=== PATIENT | male | born 2005 | race Caucasian/White ===

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

== ENCOUNTER 2023-06-09 16:30 | Emergency (ER) | payer MEDICAID, SELFPAY ==
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
[2023-06-09 16:42] VITALS: BP 157/77; PULSE 74; RESP 18; TEMP 36.6; O2SAT 98; BMI 28.7
--- NOTE | 2023-06-09 17:31 | W.ED.EXTPRO ---
HPI - Extremity Problem General: Chief complaint: Extremity Injury, Upper Stated complaint: right elbow pain Time Seen by Provider: 06/09/23 17:28 Source: patient Mode of arrival: ambulatory Limitations: no limitations History of Present Illness: 18-year-old male states he is at work 2 PM and he had a ladder fall onto his right elbow he does have a contusion to his right elbow he states he has had some pain in the elbows improved throughout the day states is mainly pain with range of motion denies any pain at rest denies any other injuries no lacerations. Associated symptoms: Deny chest pain, fever(s) or rash Review of Systems Const: Denies: fever(s), chills, body aches or change in appetite ENMT: Denies: throat pain or dental pain Card: Denies: chest pain Resp: Denies: dyspnea GI: Denies: abdominal pain, nausea, vomiting or diarrhea Musc: Reports: extremity pain; Denies: neck pain or back pain Skin/Breast: Denies: rash Neuro: Denies: headache(s) PFSH ED PFSH: Medical History No pertinent family history Surgical History H/O foot surgery Social History Smoking and tobacco/nicotine status: current every day tobacco/nicotine user Physical Exam Const: COMMON NORMALS: no acute distress and patient oriented x3 HENMT: COMMON NORMALS: normocephalic and atraumatic HEAD & SCALP: normocephalic and atraumatic Neck/C-Spine: COMMON NORMALS: full ROM and supple Chest: COMMONS NORMALS: normal inspection of the chest Resp: COMMON NORMALS: normal respiratory effort Extremity: COMMON NORMALS: full ROM NARRATIVE EXTREMITY EXAM: Contusion noted over elbow does have tenderness over right elbow no obvious deformity has full range of motion. Neuro: COMMON NORMALS: patient oriented x3, moves all extremities and no focal motor deficits Psych: COMMON NORMALS: mental status grossly normal, Normal thought process present and cooperative THOUGHT PROCESS: Normal thought process present Skin: COMMON NORMALS: no rashes or lesions noted and no wounds GENERAL SKIN EXAM: no rashes or lesions noted Course Vital Signs: Vital signs: Vital Signs Temperature 97.9 F 06/09/23 16:42 Pulse Rate 74 06/09/23 16:42 Respiratory Rate 18 06/09/23 16:42 Blood Pressure 157/77 06/09/23 16:42 Pulse Oximetry 98 06/09/23 16:42 Oxygen Delivery Me thod Room Air 06/09/23 16:42 MDM - Extremity (Nontraumatic) Medical Decision Making Patient presents here with an elbow contusion x-ray here shows no fracture patient is stable for discharge he is follow-up PCP and return if worsening. Medical Records I reviewed the patient's medical records. Lab Data Radiology Impressions Elbow X-Ray 06/09/23 16:34 IMPRESSION: No acute findings. All radiology interpretation(s) finalized by discharge Discharge Plan Discharge Patient Disposition: Home Clinical Impression: Contusion of elbow, right Condition: Stable Prescriptions: New Naprosyn 500 mg tablet 500 mg PO BID PRN (Reason: pain) Qty: 20 0RF No Action amoxicillin 875 mg tablet 875 mg PO BID 7 Days Qty: 14 0RF Naprosyn 500 mg tablet 500 mg PO BID PRN (Reason: pain) Qty: 20 0RF (DME) Cock up splint- RT Wrist See Rx Instructions .Route .MEDSUPPLY Qty: 1 0RF Rx Instructions: As directed dexamethasone 4 mg tablet 4 mg PO DAILY Qty: 5 0RF Lidocaine Viscous 2 % solution 15 ml MUCOUS MEM QID Qty: 100 0RF Rx Instructions: Mix with water and gargle for 60 seconds, then spit acetaminophen-codeine 300-30 mg tablet 1 tab PO Q6H PRN (Reason: pain) Qty: 14 0RF ibuprofen 800 mg tablet 800 mg PO Q8H PRN (Reason: pain) Qty: 20 0RF cyclobenzaprine 10 mg tablet 10 mg PO BID PRN (Reason: muscle spasm) Qty: 20 0RF Discharge Orders: Discharge ED (Routine); Ordered 06/09/23 Ordered By: Zakia Damon Discharge Diet: Advance as tolerated Discharge Activity: Resume usual activity Patient Instructions: Contusion in Adults (ED) Coding Level of Care Code ED Housecalls Nurse for Kaylin Hastings
== END 2023-06-09 17:35 | disposition home or self-care (01) ==
PROVIDERS: Emergency Provider Emergency Medicine
DX: S50.01XA Contusion of right elbow, initial encounter (principal); Z72.0 Tobacco use; W20.8XXA Other cause of strike by thrown, projected or falling object, initial encounter
CPT/HCPCS: 73080; 99283

== ENCOUNTER 2023-07-20 14:26 | Emergency (ER) | payer MEDICAID, SELFPAY ==
[2023-07-20 14:31] VITALS: BP 131/85; PULSE 89; RESP 16; TEMP 36.4; O2SAT 99; BMI 29.3
--- NOTE | 2023-07-20 14:47 | ED.C_ITS ---
HPI - Psych General: Chief Complaint: Psychiatric Symptoms Stated Complaint: MHE Time Seen by Provider: 07/20/23 14:31 Source: patient Mode of arrival: ambulatory Limitations: no limitations History of Present Illness: 18-year-old male states that he has been under some stress he is recently over 2-year relationship send history of ADHD. States has had some depression. He denies any suicidal or homicidal ideation states he feels like his mind is racing he states that he tried to see his provider at [facility] and they were closed he states he came over here because he just needed someone to talk to. Associated symptoms: Reports depression Review of Systems Const: Denies: fever(s), chills, body aches or change in appetite ENMT: Denies: throat pain or dental pain Card: Denies: chest pain Resp: Denies: dyspnea GI: Denies: abdominal pain, nausea, vomiting or diarrhea Musc: Denies: neck pain or back pain Skin/Breast: Denies: rash Neuro: Denies: headache(s) Psych: Reports: depression PFS ED PFSH: Medical History No pertinent family history Surgical History H/O foot surgery Social History Smoking and tobacco/nicotine status: current every day tobacco/nicotine user Physical Exam Const: COMMON NORMALS: no acute distress, patient oriented x3 and healthy appearing HENMT: COMMON NORMALS: normocephalic and atraumatic HEAD & SCALP: normocephalic and atraumatic Eye: COMMON NORMALS: Equal, round and reactive pupils present and EOMs intact bilaterally PUPIL: Yes Equal, round and reactive pupils present Neck/C-Spine: COMMON NORMALS: full ROM and supple Chest: COMMONS NORMALS: normal inspection of the chest Resp: COMMON NORMALS: normal respiratory effort Cardio: COMMON NORMALS: regular rate and regular rhythm RATE: regular rate RHYTHM: regular rhythm Extremity: COMMON NORMALS: normal to inspection and full ROM Neuro: COMMON NORMALS: patient oriented x3, moves all extremities and no focal motor deficits Psych: COMMON NORMALS: mental status grossly normal, Normal thought process present and cooperative THOUGHT PROCESS: Normal thought process present Skin: COMMON NORMALS: no rashes or lesions noted and no wounds GENERAL SKIN EXAM: no rashes or lesions noted Course Vital Signs: Vital signs: Vital Signs Temperature 97.5 F L 07/20/23 14:31 Pulse Rate 89 07/20/23 14:31 Respiratory Rate 16 07/20/23 14:31 Blood Pressure 131/85 07/20/23 14:31 Pulse Oximetry 99 07/20/23 14:31 Oxygen Delivery Me thod Room Air 07/20/23 14:31 MDM - Psych Medical Decision Making Patient presents here with depression he is also concerned about his ADHD he informs me he just really needed someone to talk to. He adamantly denies being SI or HI he is not acutely psychotic here I did offer him admission he states he does not feel like he needs to be admitted he states that he was just looking for someone to talk to I do not believe he is a threat to himself or others I did give him information on the crisis center did call the crisis center and they are open discharged him and informed him he should go to the crisis center as they are set up for this. Medical Records I reviewed the patient's medical records. No radiology studies performed this visit Discharge Plan Discharge Patient Disposition: Home Clinical Impression: Depression Condition: Stable Prescriptions: No Action amoxicillin 875 mg tablet 875 mg PO BID 7 Days Qty: 14 0RF Naprosyn 500 mg tablet 500 mg PO BID PRN (Reason: pain) Qty: 20 0RF (DME) Cock up splint- RT Wrist See Rx Instructions .Route .MEDSUPPLY Qty: 1 0RF Rx Instructions: As directed dexamethasone 4 mg tablet 4 mg PO DAILY Qty: 5 0RF Lidocaine Viscous 2 % solution 15 ml MUCOUS MEM QID Qty: 100 0RF Rx Instructions: Mix with water and gargle for 60 seconds, then spit Naprosyn 500 mg tablet 500 mg PO BID PRN (Reason: pain) Qty: 20 0RF acetaminophen-codeine 300-30 mg tablet 1 tab PO Q6H PRN (Reason: pain) Qty: 14 0RF ibuprofen 800 mg tablet 800 mg PO Q8H PRN (Reason: pain) Qty: 20 0RF cyclobenzaprine 10 mg tablet 10 mg PO BID PRN (Reason: muscle spasm) Qty: 20 0RF Discharge Orders: Discharge ED (Routine); Ordered 07/20/23 Ordered By: Zakia Damon Discharge Diet: Advance as tolerated Discharge Activity: Resume usual activity Patient Instructions: Depression (ED) Coding Level of Care Code ED Saw Setter for Kaylin Hastings
== END 2023-07-20 15:00 | disposition home or self-care (01) ==
PROVIDERS: Emergency Provider Emergency Medicine
DX: F32.A Depression, unspecified (principal); Z72.0 Tobacco use
CPT/HCPCS: 99283

== ENCOUNTER 2023-09-03 17:05 | Emergency (ER) | payer MEDICAID, SELFPAY ==
[2023-09-03 17:32] VITALS: BP 166/99; PULSE 86; RESP 16; TEMP 36.8; O2SAT 99
--- NOTE | 2023-09-03 18:02 | XRR_ITS ---
PROCEDURE INFORMATION: Exam: XR Left Ribs with PA Chest Exam date and time: 09/03/2023 6:33 PM Age: 18 years old Clinical indication: Injury or trauma; Fall; Work related; Chest wall; Sprain or strain TECHNIQUE: Imaging protocol: Radiologic exam of the left ribs with PA chest. Views: 3 views COMPARISON: CR XR chest 1V portable [id number] 08/03/2019 9:20 AM FINDINGS: Lungs: There are scattered nodules in the right lung, stable since 08/03/2019 suggesting healed granulomas. There is no consolidation. Pleural spaces: There is no pleural effusion or pneumothorax. Heart/Mediastinum: Cardiomediastinal contours are unremarkable. Bones/joints: Bones are unremarkable. No visible rib fracture. XR/XR ribs LT mn 3V w CXR1V [id number] IMPRESSION: No acute findings.
--- NOTE | 2023-09-03 18:02 | XRR_ITS ---
PROCEDURE INFORMATION: Exam: XR Right Ankle Exam date and time: 09/03/2023 6:33 PM Age: 18 years old Clinical indication: Injury or trauma; Fall; Work related; Sprain or strain; Ankle; Right TECHNIQUE: Imaging protocol: Radiologic exam of the right ankle. Views: 3 or more views. COMPARISON: CR XR ankle RT min 3V* [id number] 10/18/2022 4:16 PM FINDINGS: Bones/joints: Normal. Soft tissues: Normal. XR/XR ankle RT min 3V* [id number] IMPRESSION: No acute findings.
--- NOTE | 2023-09-03 20:08 | W.ED.FALL ---
HPI - Fall General: Chief Complaint: Fall Stated Complaint: Abd pains, Right ankle pain Time Seen by Provider: 09/03/23 19:55 History of Present Illness: Patient presents to the ER with complaints of left lateral rib pain and right ankle pain. Patient was at work today when he fell off a ladder and the ladder came down and hit him on his left ribs. Patient thinks he rolled his right ankle. He was able to work through us today. In he ambulates without difficulty. He does hurt his left lateral chest wall to take big deep breaths but the pain is minimal. Review of Systems General: Reports: 10 or more systems reviewed and unremarkable except in HPI and below PFSH ED PFSH: Medical History Psychiatric care Alcohol use disorder, mild, abuse Vaping nicotine dependence, tobacco product No pertinent family history Surgical History H/O foot surgery Social History Smoking and tobacco/nicotine status: current every day tobacco/nicotine user Physical Exam Const: COMMON NORMALS: no acute distress, average body habitus, patient oriented x3, no limitations, healthy appearing, alert and well nourished Neck/C-Spine: COMMON NORMALS: no JVD Chest: COMMONS NORMALS: normal inspection of the chest; negative for normal palpation of entire chest wall (Minimal tenderness with palpation of left lateral chest wall lower rib area) Resp: COMMON NORMALS: normal respiratory effort, No retractions, No use of accessory muscles and clear to auscultation bilaterally AUSCULTATION: clear to auscultation bilaterally Cardio: COMMON NORMALS: no JVD, regular rate, regular rhythm, S1 normal heart sound present, S2 normal heart sound present, No gallops present (Cardio), No clicks present (Cardio), No murmurs present (Cardio) and No rub (Cardio) RATE: regular rate RHYTHM: regular rhythm HEART SOUNDS: S1 normal heart sound present and S2 normal heart sound present GI: COMMON NORMALS: Normal to inspection, nondistended, normoactive bowel sounds present, Soft to palpation, non-tender, No hepatosplenomegaly present and no masses PALPATION: Yes Soft to palpation and Yes No hepatosplenomegaly present Extremity: NARRATIVE EXTREMITY EXAM: Good range of motion right ankle no obvious swelling tenderness. Neuro: COMMON NORMALS: patient oriented x3 SENSORIUM/ORIENTATION: Yes alert Course Vital Signs: Vital signs: Vital Signs Temperature 98.3 F 09/03/23 17:32 Pulse Rate 86 09/03/23 17:32 Respiratory Rate 16 09/03/23 17:32 Blood Pressure 166/99 09/03/23 17:32 Pulse Oximetry 99 09/03/23 17:32 Oxygen Delivery Me thod Room Air 09/03/23 17:32 MDM - Fall Medical Decision Making Patient had right ankle and ribs on the left side x-rayed both which were read off as no acute findings per the radiologist. These results was described in detail to the patient. Patient understands. Patient be discharged home. Differential Diagnosis Unlikely syncope, dislocation of shoulder region, fracture of wrist, compression fracture, concussion with loss of consciousness or concussion without loss of consciousness Medical Records I reviewed the patient's medical records. Lab Data I reviewed the patient's lab results. Radiology Impressions Ankle X-Ray 09/03/23 18:02 IMPRESSION: No acute findings. Ribs X-Ray 09/03/23 18:02 IMPRESSION: No acute findings. All radiology interpretation(s) finalized by discharge Discharge Plan Discharge Patient Disposition: Home Clinical Impression: Acute right ankle pain, Rib pain on left side Fall Qualifiers: Encounter type: initial encounter Qualified Code(s): W19.XXXA - Unspecified fall, initial encounter Condition: Stable Prescriptions: No Action amoxicillin 875 mg tablet 875 mg PO BID 7 Days Qty: 14 0RF Naprosyn 500 mg tablet 500 mg PO BID PRN (Reason: pain) Qty: 20 0RF (DME) Cock up splint- RT Wrist See Rx Instructions .Route .MEDSUPPLY Qty: 1 0RF Rx Instructions: As directed dexamethasone 4 mg tablet 4 mg PO DAILY Qty: 5 0RF Lidocaine Viscous 2 % solution 15 ml MUCOUS MEM QID Qty: 100 0RF Rx Instructions: Mix with water and gargle for 60 seconds, then spit Naprosyn 500 mg tablet 500 mg PO BID PRN (Reason: pain) Qty: 20 0RF Prozac 10 mg capsule 10 mg PO DAILY Qty: 1 0RF Concerta 18 mg tablet extended release 24hr 18 mg PO QAM 30 Days Qty: 30 0RF acetaminophen-codeine 300-30 mg tablet 1 tab PO Q6H PRN (Reason: pain) Qty: 14 0RF ibuprofen 800 mg tablet 800 mg PO Q8H PRN (Reason: pain) Qty: 20 0RF cyclobenzaprine 10 mg tablet 10 mg PO BID PRN (Reason: muscle spasm) Qty: 20 0RF Discharge Orders: Discharge ED (Routine); Ordered 09/03/23 Ordered By: Andre Mooney Patient Instructions: Contusion in Adults (ED) Activity Restrictions/Additional Instructions: Your x-rays of your right ankle and your left ribs was read by the radiologist as no acute fracture. These areas are probably just contused. Please take continue to take [id number] Tylenol and/or ibuprofen for pain. Please follow-up with your family practice doctor within the next 7 days if needed. Coding Level of Care Code ED Thiokol Operator for Kaylin Hastings
== END 2023-09-03 20:36 | disposition home or self-care (01) ==
PROVIDERS: Emergency Provider Emergency Medicine
DX: R07.81 Pleurodynia (principal); M25.571 Pain in right ankle and joints of right foot; Z72.0 Tobacco use; W11.XXXA Fall on and from ladder, initial encounter
CPT/HCPCS: 71101; 73610; 99284

== ENCOUNTER 2023-09-18 10:45 | Emergency (ER) | payer MEDICAID, SELFPAY ==
--- NOTE | 2023-09-18 10:54 | XRR_ITS ---
PROCEDURE INFORMATION: Exam: XR Chest Exam date and time: 09/18/2023 11:50 AM Age: 18 years old Clinical indication: Fever TECHNIQUE: Imaging protocol: Radiologic exam of the chest. Views: 1 view. COMPARISON: CR (CHEST, ) 09/03/2023 6:33 PM FINDINGS: Lungs: Unremarkable. No consolidation. Pleural spaces: Unremarkable. No pleural effusion. No pneumothorax. Heart/Mediastinum: Unremarkable. No cardiomegaly. Bones/joints: Unremarkable. XR/XR chest 1V portable [id number] IMPRESSION: No acute findings.
[2023-09-18 10:59] VITALS: BP 134/92; PULSE 78; RESP 14; TEMP 36.4; O2SAT 98
[2023-09-18 11:03] VITALS: BP 144/73; O2SAT 95
[2023-09-18 11:29] LABS: Influenza A by IFA negative (Negative); Influenza B by IFA negative (Negative); SARS Covid-2 Antigen negative (Negative)
--- NOTE | 2023-09-18 11:32 | W.ED.URI ---
HPI - URI/Sore Throat General: Chief Complaint: Upper Respiratory Infection Stated Complaint: Couch, fever Time Seen by Provider: 09/18/23 10:58 Source: patient Mode of arrival: ambulatory Limitations: no limitations History of Present Illness: 18-year-old male states over the last days had cough congestion along with subjective fevers and bodyaches. He denies any shortness of breath denies any vomiting or diarrhea he is in no distress here. Had mild headaches as well. Associated symptoms: Deny abdominal pain, chills, chest pain, diarrhea, fever(s), headache(s), nausea or vomiting Review of Systems Const: Reports: body aches; Denies: fever(s), chills or change in appetite ENMT: Denies: throat pain or dental pain Card: Denies: chest pain Resp: Reports: non-productive cough; Denies: dyspnea GI: Denies: abdominal pain, nausea, vomiting or diarrhea : Denies: dysuria Musc: Denies: neck pain or back pain Skin/Breast: Denies: rash Neuro: Denies: headache(s) PFSH ED PFSH: Medical History Psychiatric care Alcohol use disorder, mild, abuse Vaping nicotine dependence, tobacco product No pertinent family history Surgical History H/O foot surgery Social History Smoking and tobacco/nicotine status: current every day tobacco/nicotine user Physical Exam Const: COMMON NORMALS: no acute distress, patient oriented x3 and healthy appearing HENMT: COMMON NORMALS: normocephalic and atraumatic HEAD & SCALP: normocephalic and atraumatic THROAT: posterior oropharynx normal Neck/C-Spine: COMMON NORMALS: full ROM and supple Chest: COMMONS NORMALS: normal inspection of the chest Resp: COMMON NORMALS: normal respiratory effort, No retractions, No use of accessory muscles and clear to auscultation bilaterally AUSCULTATION: clear to auscultation bilaterally Cardio: COMMON NORMALS: regular rate, regular rhythm and No murmurs present (Cardio) RATE: regular rate RHYTHM: regular rhythm Extremity: COMMON NORMALS: normal to inspection and full ROM Neuro: COMMON NORMALS: patient oriented x3, moves all extremities and no focal motor deficits Psych: COMMON NORMALS: mental status grossly normal, Normal thought process present and cooperative THOUGHT PROCESS: Normal thought process present Skin: COMMON NORMALS: no rashes or lesions noted and no wounds GENERAL SKIN EXAM: no rashes or lesions noted Course Vital Signs: Vital signs: Vital Signs Temperature 97.5 F L 09/18/23 10:59 Pulse Rate 78 09/18/23 10:59 Respiratory Rate 14 09/18/23 10:59 Blood Pressure 144/73 09/18/23 11:03 Pulse Oximetry 95 09/18/23 11:03 Oxygen Delivery Me thod Room Air 09/18/23 10:59 MDM - URI/Sore Throat Medical Decision Making Patient presents here with upper respiratory infection flu and COVID are negative patient is well-appearing here he stable for discharge he is to follow-up with PCP return if worsening. Medical Records I reviewed the patient's medical records. Lab Data I reviewed the patient's lab results. Laboratory Results Influenza Type A Ag negative (Negative) 09/18/23 11:06 Influenza Type B Ag negative (Negative) 09/18/23 11:06 SARS-CoV-2 Ag (Rapid) negative (Negative) 09/18/23 11:06 XR interpretation done by ED provider, pending radiology final review ED provider radiology interpretation(s): cxr: no acute abnormalities Discharge Plan Discharge Patient Disposition: Home Clinical Impression: Upper respiratory infection Condition: Stable Prescriptions: No Action No Known Home Medications Discharge Orders: Discharge ED (Routine); Ordered 09/18/23 Ordered By: Zakia Damon Discharge Diet: Advance as tolerated Discharge Activity: Resume usual activity Patient Instructions: Upper Respiratory Infection (ED) Coding Level of Care Code ED Banking Supervisor for Kaylin Hastings
[2023-09-18] MEDS: dexamethasone 10 mg/mL INJ IM (11:39)
[2023-09-18 12:25] VITALS: BP 144/73; O2SAT 95
== END 2023-09-18 12:26 | disposition home or self-care (01) ==
PROVIDERS: Emergency Provider Emergency Medicine
DX: J06.9 Acute upper respiratory infection, unspecified (principal); Z11.52 Encounter for screening for COVID-19; Z72.0 Tobacco use
CPT/HCPCS: 71045; 87426; 87804; 96372; 99284; J1100

== ENCOUNTER → 2023-09-22 13:45 | Outpatient (BNVA) | payer MEDICAID, SELFPAY | PROVIDERS: Visit Provider Nurse Practitioner | DX: F12.10 Cannabis abuse, uncomplicated (principal); F91.3 Oppositional defiant disorder; F90.9 Attention-deficit hyperactivity disorder, unspecified type; F19.929 Other psychoactive substance use, unspecified with intoxication, unspecified | CPT/HCPCS: 80306 ==

== ENCOUNTER 2023-12-18 17:25 | Emergency (ER) | payer MEDICAID, SELFPAY ==
[2023-12-18 17:29] VITALS: BP 142/75; PULSE 70; RESP 14; TEMP 36.3; O2SAT 98
--- NOTE | 2023-12-18 19:20 | W.ED.RECABL ---
Documented by User: EULALIO Boo 12/18/23 19:51 HPI - Recheck/Abnormal Lab/Rx General: Chief Complaint: Recheck/Abnormal Lab/Rx Stated Complaint: need med refill Time Seen by Provider: 12/18/23 19:19 Source: patient Mode of arrival: ambulatory Limitations: no limitations History of Present Illness: Patient is a 18-year-old male who presents to the ED today requesting a prescription of his Adderall. Patient states he saw his [facility] provider today Madina Schmitt. Patient states he has been on the Adderall approximately 3 months for ADHD. 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 Patient states that Madina had to approve medication through her supervising physician and that because it was Thursday at 4:00 this failed to go through in time. Patient attempted multiple outlets through [facility] as well as [facility] to get his prescription all without success. MD complaint: medication refill request Initial visit (ago): hour(s) (saw [facility] earlier today) Returns today for: request for prescription Symptoms since prior visit: no new symptoms Associated symptoms: none Review of Systems General: Reports: 10 or more systems reviewed and unremarkable except in HPI and below PFS ED PFSH: Medical History Cannabis abuse Psychiatric care Alcohol use disorder, mild, abuse Vaping nicotine dependence, tobacco product No pertinent family history Surgical History H/O foot surgery Social History Smoking and tobacco/nicotine status: current every day tobacco/nicotine user Physical Exam Const: COMMON NORMALS: no acute distress, average body habitus, patient oriented x3, no limitations, healthy appearing, alert and well nourished Resp: COMMON NORMALS: normal respiratory effort and clear to auscultation bilaterally AUSCULTATION: clear to auscultation bilaterally Cardio: COMMON NORMALS: regular rate and regular rhythm RATE: regular rate RHYTHM: regular rhythm Neuro: GAYATHRI COMA SCALE: document GCS findings Gayathri coma scale eye opening: Spontaneous [place] coma scale verbal response: Orientated [place] coma scale motor response: Obey commands Gayathri coma scale total score: 15 COMMON NORMALS: patient oriented x3 SENSORIUM/ORIENTATION: Yes alert Psych: COMMON NORMALS: mental status grossly normal, Normal thought process present, cooperative, normal affect, speech normal, activity/motor behavior normal, denies hallucinations, denies homicidal ideation and denies suicidal ideation APPEARANCE: Yes grossly normal ATTITUDE: Yes calm SPEECH: Yes normal speech THOUGHT PROCESS: Normal thought process present Course Vital Signs: Vital signs: Vital Signs Temperature 97.6 F 12/18/23 20:25 Pulse Rate 68 12/18/23 20:25 Respiratory Rate 16 12/18/23 20:25 Blood Pressure 138/76 12/18/23 20:25 Pulse Oximetry 99 12/18/23 20:25 Oxygen Delivery Me thod Room Air 12/18/23 17:29 MDM - Recheck/Abnormal Lab/Rx Medical Decision Making Dr. Clancy was agreeable to fill prescription for patient. This will be one month worth of medication which should give him plenty of time to contact [facility] for any additional medication he may need while out on work. Differential Diagnosis Likely encounter for medication refill Medical Records I reviewed the patient's medical records. No radiology studies performed this visit Discharge Plan Discharge Patient Disposition: Home Clinical Impression: Encounter for medication refill Condition: Stable Prescriptions: Continued Adderall 10 mg tablet 10 mg PO BID 30 Days Qty: 60 0RF Rx Instructions: administer doses at least 4-6 hours apart Discharge Orders: Discharge ED (Routine); Ordered 12/18/23 Ordered By: Essie Coronel Coding Level of Care Code ED Fresh Foods Technician for Chg Fwd Documented by User: Manuel Clancy, 12/18/23 23:02 HPI - Recheck/Abnormal Lab/Rx General: Chief Complaint: Recheck/Abnormal Lab/Rx Stated Complaint: need med refill Time Seen by Provider: 12/18/23 19:19 PFS ED PFSH: Medical History Cannabis abuse Psychiatric care Alcohol use disorder, mild, abuse Vaping nicotine dependence, tobacco product No pertinent family history Surgical History H/O foot surgery Social History Smoking and tobacco/nicotine status: current every day tobacco/nicotine user Physical Exam Neuro: GAYATHRI COMA SCALE: document GCS findings [place] coma scale total score: 15 Course Vital Signs: Vital signs: Vital Signs Temperature 97.6 F 12/18/23 20:25 Pulse Rate 68 12/18/23 20:25 Respiratory Rate 16 12/18/23 20:25 Blood Pressure 138/76 12/18/23 20:25 Pulse Oximetry 99 12/18/23 20:25 Oxygen Delivery Me thod Room Air 12/18/23 17:29 MDM - Recheck/Abnormal Lab/Rx Medical Decision Making Dr. Clancy was agreeable to fill prescription for patient. This will be one month worth of medication which should give him plenty of time to contact [facility] for any additional medication he may need while out on work. This patient was originally seen by Mrs. Coronel?LUIS E Albright? I agree with her history, evaluation, and treatment. Discharge Plan Discharge Patient Disposition: Home Clinical Impression: Encounter for medication refill Condition: Stable Prescriptions: Continued Adderall 10 mg tablet 10 mg PO BID 30 Days Qty: 60 0RF Rx Instructions: administer doses at least 4-6 hours apart Discharge Orders: Discharge ED (Routine); Ordered 12/18/23 Ordered By: Essie Coronel Coding Level of Care Code ED Fresh Foods Technician for Kaylin Hastings
[2023-12-18 20:25] VITALS: BP 138/76; PULSE 68; RESP 16; TEMP 36.4; O2SAT 99
== END 2023-12-18 19:58 | disposition home or self-care (01) ==
PROVIDERS: Emergency Provider Physician Assistant
DX: Z76.0 Encounter for issue of repeat prescription (principal); Z72.0 Tobacco use
CPT/HCPCS: 99281

== ENCOUNTER 2024-01-25 18:58 | Emergency (ER) | payer MEDICAID, SELFPAY ==
--- NOTE | 2024-01-25 19:02 | XRR_ITS ---
PROCEDURE INFORMATION: Exam: XR Right Shoulder Exam date and time: 01/25/2024 7:34 PM Age: 18 years old Clinical indication: Pain; Right; Prior surgery; Surgery date: 6+ months; Surgery type: RT shoulder; Additional info: Injury TECHNIQUE: Imaging protocol: Radiologic exam of the right shoulder. Views: 2 or more views. COMPARISON: CR XR chest 1V portable [id number] 09/18/2023 11:50 AM FINDINGS: Bones/joints: No acute fracture. No dislocation. Normal bone mineralization. No joint effusion. Joint spaces are maintained. Lungs: The visualized right lung is clear. Soft tissues: No soft tissue swelling. No radiopaque foreign body. XR/XR shoulder RT min 2V* [id number] IMPRESSION: Negative radiographs of the right shoulder. Followup imaging recommended in 7-14 days if clinical concern for fracture persists.
[2024-01-25 19:05] VITALS: BP 127/78; PULSE 76; RESP 16; TEMP 36.8; O2SAT 98; BMI 28.0
--- NOTE | 2024-01-25 20:56 | ED_ITS ---
HPI - Extremity Problem General: Chief complaint: Extremity Injury, Upper Stated complaint: Right shoulder pain Time Seen by Provider: 01/25/24 20:44 Source: patient Mode of arrival: ambulatory Limitations: no limitations History of Present Illness: Patient is a 18-year-old male presenting to the emergency department complaining of chronic right shoulder pain acutely worsening 4 days ago. Patient states he has a history of right shoulder fracture, this was surgically repaired. He states that he has had chronic pain since, and 4 days ago he injured it at work and a hyperextension injury. He states that at that time it causes shoulder dislocate, however with the help of a coworker he was able to pop it back in place. Pain to the right shoulder has only steadily worsened since and states that last night he was up all night due to the pain. He has not been taking anything for the pain. He states that he does not have primary care at this time, as he works on the [employer] and is gone for 30 days at a time. He is set to leave this Thursday and wonders if he can see a specialist before then. He notes that he did do a trial of physical therapy but that this did not help very much. No distal radiation of the pain, no numbness/weakness/tingling, and no other symptoms to report at this time. MD Complaint: joint pain Location: right and upper extremity Radiation: none Relieving factors: nothing Exacerbating factors: range of motion Associated symptoms: Deny chest pain, fever(s) or rash Review of Systems General: Reports: 10 or more systems reviewed and unremarkable except in HPI and below Const: Denies: fever(s) or chills Card: Denies: chest pain Resp: Denies: dyspnea or productive cough GI: Denies: abdominal pain, nausea, vomiting or diarrhea : Denies: flank pain Musc: Reports: joint pain (right shoulder); Denies: neck pain, back pain, extremity pain, extremity swelling, joint swelling, joint redness, joint warmth, limited range of motion or muscle weakness Skin/Breast: Denies: rash Neuro: Denies: headache(s), numbness in extremities or weakness in extremities PFS ED PFSH: Medical History Cannabis abuse Psychiatric care Alcohol use disorder, mild, abuse Vaping nicotine dependence, tobacco product No pertinent family history Surgical History H/O foot surgery Social History Smoking and tobacco/nicotine status: current every day tobacco/nicotine user Physical Exam Const: COMMON NORMALS: no acute distress, patient oriented x3, no limitations, healthy appearing, alert and well nourished HENMT: COMMON NORMALS: normocephalic and atraumatic HEAD & SCALP: normocephalic and atraumatic Neck/C-Spine: COMMON NORMALS: full ROM, supple and no meningeal signs Resp: COMMON NORMALS: normal respiratory effort, No use of accessory muscles and clear to auscultation bilaterally AUSCULTATION: clear to auscultation bilaterally Cardio: COMMON NORMALS: regular rate and regular rhythm RATE: regular rate RHYTHM: regular rhythm Extremity: COMMON NORMALS: normal to inspection, capillary refill normal, no joint enlargement and no clubbing, cyanosis or edema NARRATIVE EXTREMITY EXAM: Pain with range of motion, specifically abduction and adduction of the right shoulder. Postop arthroscopic scars. No significant reproducible tenderness to palpation. No bruising or obvious signs of deformity or dislocation. Neuro: COMMON NORMALS: patient oriented x3, moves all extremities, no focal motor deficits and no sensory deficits noted SENSORIUM/ORIENTATION: Yes alert MENINGEAL SIGNS: Yes no meningeal signs Skin: COMMON NORMALS: no rashes or lesions noted GENERAL SKIN EXAM: no rashes or lesions noted Course Vital Signs: Vital signs: Vital Signs Temperature 98.3 F 01/25/24 19:05 Pulse Rate 76 01/25/24 19:05 Respiratory Rate 16 01/25/24 19:05 Blood Pressure 127/78 01/25/24 19:05 Pulse Oximetry 98 01/25/24 19:05 Oxygen Delivery Me thod Room Air 01/25/24 19:05 MDM - Extremity (Nontraumatic) Medical Decision Making Patient seen for chronic right shoulder pain that was exacerbated at work 4 days ago, stating it was dislocated and then popped back in place by coworker. History of shoulder surgery on that right shoulder. Pain has been steadily worsened since the incident. Vitals normal on arrival. Physical examination did reveal pain with range of motion of that right shoulder, however there is no significant reproducible tenderness to palpation and no obvious signs of dislocation or deformity. Further, x-ray did not demonstrate any acute findings. I informed him that we probably need to get him into see orthopedics for an MRI, as I do believe his pain to be of tendinous or ligamentous origin at this time. Other etiologies include potential complex regional pain syndrome or other postoperative pains. He is given shot of steroid, muscle relaxer, and Toradol here in the emergency department and prescription sent to pharmacy for him to treat his acute pain. Referred to orthopedics, and strict return precautions are given. Lab Data Radiology Impressions Shoulder X-Ray 01/25/24 19:02 IMPRESSION: Negative radiographs of the right shoulder. Followup imaging recommended in 7-14 days if clinical concern for fracture persists. All radiology interpretation(s) finalized by discharge Discharge Plan Discharge Patient Disposition: Home Clinical Impression: Pain in right shoulder Condition: Stable Prescriptions: New prednisone 20 mg tablet 60 mg PO ONCE 5 Days Qty: 15 0RF ketorolac 10 mg tablet 10 mg PO Q8H PRN (Reason: pain) Qty: 15 0RF methocarbamol 750 mg tablet 750 mg PO Q8H 5 Days Qty: 15 0RF No Action Adderall 10 mg tablet 10 mg PO BID 30 Days Qty: 60 0RF Rx Instructions: administer doses at least 4-6 hours apart Discharge Orders: Discharge ED (Routine); Ordered 01/25/24 Ordered By: Felipe Shook Discharge Diet: Usual diet Discharge Activity: Increase activity as tolerated Patient Instructions: Shoulder Pain (ED), Pain Management Activity Restrictions/Additional Instructions: Follow-up with orthopedics for further evaluation, including potentially MRI. Take medications as prescribed. Gentle range of motion exercises as tolerated. Please return with any new or worsening symptoms. Coding Level of Care Code ED Visual Training Aide for Kaylin Hastings
[2024-01-25] MEDS: cyclobenzaprine 10 mg Tablet PO (21:24)
[2024-01-25] MEDS: dexamethasone 10 mg/mL INJ IM (21:25)
[2024-01-25] MEDS: ketorolac 60 mg/2 mL INJ IM (21:28)
--- NOTE | 2024-01-27 08:12 | DCPLANNER ---
messaged ortho for er f/u
== END 2024-01-25 21:34 | disposition home or self-care (01) ==
PROVIDERS: Emergency Provider Physician Assistant
DX: M25.511 Pain in right shoulder (principal); G89.29 Other chronic pain
CPT/HCPCS: 73030; 96372; 99284; J1100; J1885

== ENCOUNTER 2024-02-17 20:28 | Emergency (ER) | payer MEDICAID, SELFPAY ==
--- NOTE | 2024-02-17 20:36 | ED_ITS ---
HPI - Chest Pain 2 General: Chief Complaint: General Medical Stated Complaint: CP sob Time Seen by Provider: 02/17/24 20:34 Source: patient Mode of arrival: ambulatory Limitations: no limitations History of Present Illness: Patient is a 18-year-old male who presents to ED today with a complaint of episodic left-sided chest pain over the past 2 months. He states over this time. He has had approximately 6 episodes. He states episodes always seem to be when he lies down trying to sleep at night. He states that soon as he attempts to drift off to sleep he will awaken with shock like sensations to the left side of his chest. States it feels like electric currents are running through his heart. Patient states he has an incredible sense of impending doom when these happen. Feels like heart is racing although has never checked his pulse He states he does not feel anxious before symptoms occur. He states he usually feels good during the day when he is up and moving . During episode this evening he applied ice to his chest and thinks maybe this helped He has not noticed any shortness of breath or difficulty breathing. Patient upon arrival seems slightly drowsy. He states he has not slept well in days. Patient does not have any leg pain/calf pain or leg swelling. He states he has no known medical issues. He does have a history of psychiatric care as well as substance abuse. States he used to take Adderall for ADHD but has not taken this medication in several weeks. Denies drug/etoh use but does admit to these in the past. Does admit to taking a hydrocodone prior to arrival to see if this would help his pain. At time of examination, he is no longer having chest pain. MD complaint: chest pain Onset (ago): month(s) Timing of current episode: episodic Prior episodes: Yes Onset: during rest (lying down in bed attempting sleep) Pain location: left chest Pain radiation: none Severity: severe Quality: other ( shock like ) Relieving factors: other (felt like maybe ice helped this evening) Exacerbating factors: nothing Associated symptoms: Reports sense of impending doom; Deny abdominal pain, dyspnea, fever(s), nausea, palpitations, syncope or vomiting Treatment prior to arrival: none Risk Factors: Coronary artery disease risk factors: none Thoracic aortic dissection risk factors: none Related Data Previous Rx's Medication Instructions Recorded dextroamphetamine-amphetamine 10 10 mg PO BID 30 days #60 tabs 01/19/24 mg tablet (Adderall) ketorolac 10 mg tablet 10 mg PO Q8H PRN pain #15 tabs 01/25/24 Allergies Allergy/AdvReac Type Severity Reaction Status Date / Time No Known Allergies Allergy Verified 02/17/24 20:52 Review of Systems 2 Const: Reports: fatigue; Denies: fever(s), chills, body aches or malaise Eyes: Denies: change in vision, blurry vision, photophobia, floaters or seeing flashes ENMT: Denies: throat pain, odynophagia, nasal discharge, nasal congestion or sinus pain Card: Reports: chest pain; Denies: palpitations, irregular heart rhythm, edema, swelling of feet/ankles, lightheadedness, syncope, pre-syncope, dyspnea on exertion, orthopnea, leg pain with exertion or acrocyanosis Resp: Denies: dyspnea, productive cough, non-productive cough, wheezing, pain on inspiration, hemoptysis or chest congestion GI: Denies: abdominal pain, nausea, vomiting, heartburn or diarrhea : Denies: flank pain, difficulty urinating or dysuria Musc: Denies: neck pain, back pain, extremity pain, extremity swelling or joint pain Skin/Breast: Denies: rash Neuro: Denies: headache(s), numbness in extremities, weakness in extremities, sensory changes, lack of coordination, difficulty walking, frequent falls, dizziness, vertigo, confusion, behavioral changes, Slurred speech present, difficulty communicating thoughts or seizure-like activity PFSH ED 2 PFSH: Medical History Cannabis abuse Psychiatric care Alcohol use disorder, mild, abuse Vaping nicotine dependence, tobacco product No pertinent family history Surgical History H/O foot surgery Social History Smoking and tobacco/nicotine status: current every day tobacco/nicotine user Physical Exam 2 Const: COMMON NORMALS: no acute distress, average body habitus, patient oriented x3, no limitations, healthy appearing, alert and well nourished G ENERAL APPEARANCE: cooperative ORIENTATION/CONSCIOUSNESS: Yes awake, Yes oriented to person, Yes oriented to place and Yes oriented to time OTHER: appears slightly drowsy-states he hasn't slept well in days HENMT: COMMON NORMALS: normocephalic and atraumatic HEAD & SCALP: normal to inspection, normocephalic and atraumatic Eye: COMMON NORMALS: Equal, round and reactive pupils present and EOMs intact bilaterally GENERAL EYE: appearance normal, both eyes and all related structures and normal light reflex PUPIL: Yes Equal, round and reactive pupils present DIRECT OPHTHALMOSCOPY: Yes normal light reflex Neck/C-Spine: COMMON NORMALS: full ROM, no lymphadenopathy, supple and no meningeal signs Chest: COMMONS NORMALS: normal inspection of the chest and normal palpation of entire chest wall Resp: COMMON NORMALS: normal respiratory effort and clear to auscultation bilaterally AUSCULTATION: clear to auscultation bilaterally Cardio: COMMON NORMALS: regular rate and regular rhythm RATE: regular rate RHYTHM: regular rhythm GI: COMMON NORMALS: Normal to inspection, nondistended, normoactive bowel sounds present, Soft to palpation, non-tender, No hepatosplenomegaly present and no masses PALPATION: Yes Soft to palpation and Yes No hepatosplenomegaly present : COMMON NORMALS: Yes no CVA tenderness BLADDER/KIDNEY EXAM: Yes no CVA tenderness Back/Pelvis: COMMON NORMALS: no CVA tenderness and thoracic and lumbar spine normal to inspection Extremity: COMMON NORMALS: normal to inspection, no clubbing, cyanosis or edema, no calf tenderness and no pedal edema GENERAL: Yes normal exam except as noted Neuro: GAYATHRI COMA SCALE: document GCS findings [place] coma scale eye opening: Spontaneous [place] coma scale verbal response: Orientated Gayathri coma scale motor response: Obey commands [place] coma scale total score: 15 COMMON NORMALS: patient oriented x3, CN's II-XII intact bilaterally, moves all extremities, no focal motor deficits and no sensory deficits noted S ENSORIUM/ORIENTATION: Yes alert, Yes oriented to person, Yes oriented to place and Yes oriented to time MENINGEAL SIGNS: Yes no meningeal signs Skin: COMMON NORMALS: no rashes or lesions noted GENERAL SKIN EXAM: no rashes or lesions noted Course 2 Vital Signs: Vital signs: Vital Signs Temperature 98.4 F 02/17/24 20:37 Pulse Rate 67 02/17/24 22:30 Respiratory Rate 18 02/17/24 22:30 Blood Pressure 132/87 02/17/24 22:30 Pulse Oximetry 97 02/17/24 22:30 Oxygen Delivery Me thod Room Air 02/17/24 22:30 MDM - Chest Pain Medical Decision Making Patient reports feeling much better during his stay and wants to go home. He did at one point tried to elope to go outside to smoke because he and the female individual that accompanied him reportedly got into it . Patient's vital signs are stable. His blood work including CBC, CMP, BNP, troponin are all unremarkable. His EKG is nonischemic and without arrhythmia. Short PA interval that was present on previous EKG several years ago. CXR unremarkable. UDS positive for opiates which he admittedly took a hydrocodone prior to arrival. At this time I would like patient to follow-up with a primary care provider. Will place case management referral for this. Return ED precautions given. Medical Records I reviewed the patient's medical records. Lab Data I reviewed the patient's lab results. 02/17/24 21:09 02/17/24 21:09 Radiology Impressions Chest X-Ray 02/17/24 20:51 IMPRESSION: No acute pulmonary disease. Laboratory Results WBC 6.98 10^3/uL (4.5-13.0) 02/17/24 21:09 RBC 4.29 10^6/uL (3.85-5.65) 02/17/24 21:09 Hgb 13.70 g/dL (13.2-15.6) 02/17/24 21:09 Hct 37.9 % (37-53) 02/17/24 21:09 MCV 88.3 fl (82-101) 02/17/24 21:09 MCH 31.9 pg (27-33) 02/17/24 21:09 MCHC 36.1 g/dL (30-55) 02/17/24 21:09 RDW 11.9 % (12.1-15.1) L 02/17/24 21:09 Plt Count 213 10^3/cmm (157-399) 02/17/24 21:09 MPV 9.1 fL (7.4-10.4) 02/17/24 21:09 Neut % (Auto) 58.0 % 02/17/24 21:09 Lymph % (Auto) 31.7 % 02/17/24 21:09 Delta % (Auto) 8.2 % 02/17/24 21:09 Eos % (Auto) 1.7 % 02/17/24 21:09 Baso % (Auto) 0.1 % 02/17/24 21:09 Neut # (Auto) 4.05 10^3/uL (1.8-8.0) 02/17/24 21:09 Lymph # (Auto) 2.2 10^3/uL (1.5-6.5) 02/17/24 21:09 Delta # (Auto) 0.6 10^3/uL (0.2-0.9) 02/17/24 21:09 Eos # (Auto) 0.1 10^3/uL (0.0-0.8) 02/17/24 21:09 Baso # (Auto) 0.0 10^3/uL (0.0-0.1) 02/17/24 21:09 Nucleated RBC % (auto) 0 % 02/17/24 21:09 Nucleated RBCs # 0.0 /100WBC 02/17/24 21:09 Sodium 140 mmol/L (136-145) 02/17/24 21:09 Potassium 3.8 mmol/L (3.5-5.1) 02/17/24 21:09 Chloride 104 mmol/L (98-107) 02/17/24 21:09 Carbon Dioxide 22 mmol/L (22-29) 02/17/24 21:09 Anion Gap 17.8 (5-19) 02/17/24 21:09 BUN 13 mg/dL (6-20) 02/17/24 21:09 Creatinine 0.9 mg/dL (0.7-1.2) 02/17/24 21:09 GFR Calculation 107.6 mL/min (90-130) 02/17/24 21:09 Glucose 112 mg/dL (65-115) 02/17/24 21:09 POC Glucose 126 mg/dL (70-110) H 02/17/24 20:51 Calculated Osmolality 291 mOsm/kg (285-295) 02/17/24 21:09 Calcium 9.1 mg/dL (8.5-10.5) 02/17/24 21:09 Total Bilirubin 1.1 mg/dL (0.15-1.2) 02/17/24 21:09 AST 27 U/L (0-40) 02/17/24 21:09 ALT 36 U/L (0-41) 02/17/24 21:09 Alkaline Phosphatase 65 U/L (40-130) 02/17/24 21:09 Troponin T Baseline < 6 ng/L (0-15) 02/17/24 21:09 NT-Pro-B Natriuret Pep 73 pg/mL (0-125) 02/17/24 21:09 Total Protein 6.8 g/dL (6.6-8.7) 02/17/24 21:09 Albumin 4.8 g/dL (3.5-5.2) 02/17/24 21:09 Globulin 2.0 g/dL (1.3-4.6) 02/17/24 21:09 Urine Opiates Screen Positive ng/mL (Negative) H 02/17/24 21:26 Ur Barbiturates Screen Negative ng/mL (Negative) 02/17/24 21:26 Ur Phencyclidine Scrn Negative ng/mL (Negative) 02/17/24 21:26 Ur Amphetamines Screen Negative ng/mL (Negative) 02/17/24 21:26 U Benzodiazepines Scrn Negative ng/mL (Negative) 02/17/24 21:26 Urine Cocaine Screen Negative ng/mL (Negative) 02/17/24 21:26 U Marijuana (THC) Screen Negative ng/mL (Negative) 02/17/24 21:26 Ethyl Alcohol < 10 mg/dL (0-10) 02/17/24 21:09 All radiology interpretation(s) finalized by discharge Discharge Plan Discharge Patient Disposition: Home Clinical Impression: Intermittent left-sided chest pain Condition: Stable Prescriptions: No Action Adderall 10 mg tablet 10 mg PO BID 30 Days Qty: 60 0RF Rx Instructions: administer doses at least 4-6 hours apart ketorolac 10 mg tablet 10 mg PO Q8H PRN (Reason: pain) Qty: 15 0RF Discharge Orders: Discharge ED (Routine); Ordered 02/17/24 Ordered By: Essie Coronel Activity Restrictions/Additional Instructions: As we discussed I would like you to follow-up with a primary care provider. I will place a case management referral for this. You need to return to the emergency department for worsening chest pain, shortness of breath, difficulty breathing, lightheadedness/dizziness/passing out episodes, or any other concerns you may have. Coding Level of Care Code ED Manager Sound for Kaylin Hastings
[2024-02-17 20:37] VITALS: BP 137/102; PULSE 67; RESP 16; TEMP 36.9; O2SAT 99; BMI 29.9
--- NOTE | 2024-02-17 20:43 | ECG_ITS ---
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 Measurements Intervals [place] Rate: 63 P: 35 ME: 119 QRS: 42 QRSD: 96 T: 35 QT: 389 QTc: 399 Interpretive Statements SINUS RHYTHM WITH SHORT ME INTERVAL Compared to ECG 08/03/2019 15:13:52 Sinus bradycardia no longer present Electronically Signed On 02-18-2024 11:07:44 CDT by Kelvin Wallace M.D. [email or web address]
--- NOTE | 2024-02-17 20:51 | XRR_ITS ---
PROCEDURE INFORMATION: Exam: XR Chest Exam date and time: 02/17/2024 8:56 PM Age: 18 years old Clinical indication: Pain; Chest pressure; Additional info: Chest pain TECHNIQUE: Imaging protocol: Radiologic exam of the chest. Views: 1 view. COMPARISON: CR XR chest 1V portable [id number] 09/18/2023 11:50 AM FINDINGS: Lungs: The lungs are adequately expanded. No focal consolidations or pulmonary edema. Pleural spaces: No pleural effusions or pneumothorax. Heart/Mediastinum: No cardiomegaly. Bones/joints: No acute fractures. XR/XR chest 1V portable [id number] IMPRESSION: No acute pulmonary disease.
[2024-02-17 20:53] VITALS: BP 120/83; PULSE 79; O2SAT 98
[2024-02-17 20:54] LABS: Glucose Point of Care 126 mg/dL (70-110)
[2024-02-17 21:28] LABS: Basophils % 0.1 %; Eosinophils # 0.1 10^3/uL (0.0-0.8); Eosinophils % 1.7 %; Hematocrit 37.9 % (37-53); Lymphocytes # 2.2 10^3/uL (1.5-6.5); Lymphocytes % 31.7 %; Mean Corpuscular HGB Conc 36.1 g/dL (30-55); Mean Corpuscular Hemoglobin 31.9 pg (27-33); Mean Corpuscular Volume 88.3 fl (82-101); Mean Platelet Volume 9.1 fL (7.4-10.4); Monocytes # 0.6 10^3/uL (0.2-0.9); Monocytes % 8.2 %; Neutrophils # 4.05 10^3/uL (1.8-8.0); Nucleated Red Blood Cells % 0 %; Platelet Count 213 10^3/cmm (157-399); Red Blood Count 4.29 10^6/uL (3.85-5.65); Red Cell Distribution Width 11.9 % (12.1-15.1); White Blood Count 6.98 10^3/uL (4.5-13.0)
[2024-02-17 21:38] VITALS: BP 145/81; PULSE 63; RESP 18; O2SAT 98
[2024-02-17 21:48] LABS: Amphetamines Screen Urine Negative (Negative); Barbiturates Screen Urine Negative (Negative); Benzodiazepines Screen Urine Negative (Negative); Cocaine Screen Urine Negative (Negative); Opiate Screen Urine Positive (Negative); PCP Screen Urine Negative (Negative); THC Screen Urine Negative (Negative)
[2024-02-17 22:00] VITALS: BP 116/74; PULSE 63; O2SAT 99
[2024-02-17 22:08] LABS: Alanine Aminotransferase 36 U/L (0-41); Albumin Level 4.8 g/dL (3.5-5.2); Alkaline Phosphatase 65 U/L (40-130); Aspartate Amino Transferase 27 U/L (0-40); Blood Urea Nitrogen 13 mg/dL (6-20); Calcium 9.1 mg/dL (8.5-10.5); Carbon Dioxide 22 mmol/L (22-29); Creatinine Clr Calc Pharmacy 174.5274; Glomerular Filtration Rate 107.6 mL/min (90-130); Glucose 112 mg/dL (65-115); NT Pro B Type Natriuretic Pept 73 pg/mL (0-125); Total Bilirubin 1.1 mg/dL (0.15-1.2); Total Protein 6.8 g/dL (6.6-8.7)
[2024-02-17 22:09] LABS: Alcohol Level < 10 mg/dL (0-10)
[2024-02-17 22:12] LABS: Troponin(5th) Baseline < 6 ng/L (0-15)
--- NOTE | 2024-02-17 22:20 | PC.NURSE ---
pt drinking water, pt states he is feeling a lot better now. pt states he will be getting a primary care doctor. pt also voiced concern for iron deficiency because my blood is so think and dark.
[2024-02-17 22:30] VITALS: BP 132/87; PULSE 67; RESP 18; O2SAT 97
[2024-02-17 22:37] LABS: Anion Gap 17.8 (5-19); Chloride 104 mmol/L (98-107); Osmolality Calculated 291 mOsm/kg (285-295); Potassium 3.8 mmol/L (3.5-5.1); Sodium 140 mmol/L (136-145)
--- NOTE | 2024-02-18 06:57 | DCPLANNER ---
sujata russ [facility] for er f/u
== END 2024-02-17 23:04 | disposition home or self-care (01) ==
PROVIDERS: Emergency Provider Physician Assistant
DX: R07.9 Chest pain, unspecified (principal); Z72.0 Tobacco use
CPT/HCPCS: 36415; 36416; 71045; 80053; 80306; 80307; 82962; 83880; 84484; 85025; 93005; 99285

== ENCOUNTER → 2024-05-19 12:14 | Outpatient (BNVA) | payer OTHER, SELFPAY | PROVIDERS: Visit Provider Nurse Practitioner | DX: J02.9 Acute pharyngitis, unspecified (principal) | CPT/HCPCS: 87880 ==

== ENCOUNTER → 2024-08-18 09:46 | Outpatient (BNVA) | payer OTHER, SELFPAY | PROVIDERS: Visit Provider Nurse Practitioner | DX: Z02.83 Encounter for blood-alcohol and blood-drug test (principal) | CPT/HCPCS: 80306 ==